=== PATIENT | female | born 1965 | race Caucasian/White ===

== ENCOUNTER → 2017-10-22 | Outpatient (CLI) | payer MEDICARE, MEDICAID ==
[~2017-10-22] MED LIST: ACE325 PO; ACE500 PO; ALBU8.5H12 IH; BUPR-127 PO; CODE118S5 PO; CYC10 PO; DAR100 PO; DIA5 PO; ESTR1.2525 PO; FISH OIL1 CAP PO; GEMF600T89 PO; HYD2 PO; HYDR2TAB42 PO; IBU600 PO; IRO150 PO; LANS15TA13 PO; LEV500 PO; LOR5 PO; METH4TAB57 PO; MULT-1319 PO; MULT1CAP41 PO; OMEP-218 PO; OXYC20TA86 PO; PER PO; PRED20TA6 PO; PREG75CA61 PO; PRO25 PO; VANC1FRO2 IV
--- NOTE | 2017-10-22 17:36 | RADIOLOGY IMAGING REPORT ---
FACILITY: [facility] [place] PATIENT NAME: Ondina Matute : 1965 MR: [id number] V: [id number] EXAM DATE: ORDERING PHYSICIAN: MILLY AVILA TECHNOLOGIST: Location: [facility] Patient: Ondina Matute : 1965 Visit/Account:[id number] Date of Sevice: 10/22/2017 EXAMINATION: Nuclear Medicine Limited Bone Scan with SPECT 10/22/2017 8:00 AM History: Low back pain post lumbar fusion 2008. Patient reports fall about 3 weeks ago. Patient rep orts pain on the right above the waist. TECHNIQUE: 24.6 mCi technetium 99m MDP was injected intravenously. Delayed gamma camera images in va rious orientation were obtained of the thoracolumbar spine and pelvis in multiple projections. SPECT imaging was also done.. COMPARISON STUDIES: Lumbosacral spine films 09/18/2010 FINDINGS: Bone radiotracer activity: There is fairly symmetric bilateral localization along the posterior [place] ents at 2 levels along the thoracolumbar junction. Also fairly symmetric uptake appears to be along t he anterior aspect of the pedicles at L4. Fairly low-grade localization and S1 is of questionable sig nificance. Soft tissues: negative IMPRESSION: 1. Localization along the anterior aspect of the pedicles at L4. With a history of previous PLIF this may indicate some loosening along the screws. 2. Posterior localization along the thoracolumbar spine is of uncertain etiology but may be related t o facet degenerative change, particularly given history of previous vertebral compression fractures h ere. Report Dictated By: Kaiser Best MD at 10/22/2017 5:23 PM Report E-Signed By: Kaiser Best MD at 10/22/2017 5:33 PM WSN:[id number]
== END ==
LOC: NUC 00:58
PROVIDERS: ATTEND Orthopaedic Surgery
DX: M54.5 Low back pain (principal); Z98.1 Arthrodesis status
CPT/HCPCS: 36415; 78300; 85027; 85651; 86140; A9503

== ENCOUNTER → 2018-04-02 | Outpatient (CLI) | payer MEDICARE, MEDICAID ==
[~2018-04-02] MED LIST changes: +IOPAMIDOL 76% 75 ML INFUS BTL 75 ML ONE
--- NOTE | 2018-04-02 14:58 | RADIOLOGY IMAGING REPORT ---
FACILITY: [facility] PATIENT NAME: Ondina Matute : 1965 MR: [id number] V: [id number] EXAM DATE: ORDERING PHYSICIAN: STEPHANIE PHILLIPS TECHNOLOGIST: [place] [facility] [place] Ondina Matute : 1965 Visit/Account:[id number] Date of Sevice: 04/02/2018 EXAMINATION: CT neck without IV contrast CT neck with IV contrast HISTORY: Swelling, mass, lump in neck for 3 days. COMPARISON: None. TECHNIQUE: Spiral scan was obtained from the hard palate through the upper chest without and with n onionic iodinated intravenous contrast. Sagittal and coronal reformatted images are also submitted. CONTRAST: 75 mL of IV Isovue-370. One of the following dose optimization techniques was utilized in the performance of this exam: Autom ated exposure control; adjustment of the mA and/or kV according to the patient's size; or use of an i terative reconstruction technique. Specific details can be referenced in the facility's radiology C T exam operational policy. FINDINGS: Masses/lesions: The thyroid is heterogeneous with diffuse enlargement of the right lobe and a probab le 4.8 cm nodule replacing the right lobe. Mildly prominent lingular tonsillar tissue without focal abnormality. The tongue base is collapsed sl ightly posteriorly. Airway: Mild narrowing of the oropharyngeal airway by the tongue base. Vessels: Mild atherosclerotic calcifications of the left carotid bulb. Vascular structures are paten t. Musculoskeletal/body wall: Mild degenerative changes of the cervical spine. Lymph nodes: There are a few shotty appearing lymph nodes bilaterally. Visualized orbits/brain/paranasal sinuses: Negative. Upper chest: 4 mm noncalcified left upper lobe nodule (image 79 series 6). IMPRESSION: 1. Heterogeneous thyroid with diffuse enlargement of the right lobe is suspicious for a large nodule replacing the right lobe. Thyroid ultrasound is recommended for further evaluation. 2. Prominent lingular tonsillar tissue is likely due to mild inflammation or tonsillar hypertrophy. T he tongue base is collapsed slightly posteriorly and causes mild narrowing of the oropharyngeal airwa y. 3. 4 mm noncalcified left upper lobe nodule. Fleischner society follow-up guidelines for newly detected incidental nodules in persons 35 years of age or older. *These recommendations do not apply to lung cancer screening, patients with immunosuppression, or pat ients with known primary malignancy. INCOMPLETE CHEST If nodule size is less than 6 mm: No further investigation on the basis of the estimated low risk of malignancy. Rafi H, Richard DP, Torres RAM, et al. Guidelines for Management of Incidental Pulmonary Nodules Dete cted on CT Images: From the Fleischner Society 2017. Radiology. These findings were discussed with STEPHANIE PHILLIPS at 04/02/2018 2:41 PM. Report Dictated By: Idalia Blackmon MD at 04/02/2018 2:21 PM Report E-Signed By: Idalia Blackmon MD at 04/02/2018 2:54 PM WSN:[id number]
--- NOTE | 2018-04-02 16:34 | RADIOLOGY IMAGING REPORT ---
FACILITY: [facility] PATIENT NAME: Ondina Matute : 1965 MR: [id number] V: [id number] EXAM DATE: ORDERING PHYSICIAN: STEPHANIE PHILLIPS TECHNOLOGIST: Location: [facility] [place] Patient: Ondina Matute : 1965 Visit/Account:[id number] Date of Sevice: 04/02/2018 EXAMINATION: Ultrasound thyroid HISTORY: Swelling, mass or lump in neck for [address] thyroid on CT. COMPARISON: CT neck from 04/02/2018. FINDINGS: Thyroid size: Right lobe: 5.8 x 2.4 x 3.5 cm Left lobe: 4.6 x 1.7 x 1.6 cm Isthmus: 0.4 cm Thyroid heterogeneity: Homogeneous parenchyma. Thyroid vascularity: Normal. Thyroid nodules: Right lobe: * 3.5 x 3.0 x 2.3 cm isoechoic, well-defined solid and cystic nodule mid lobe, not hypervascular. * 1.8 x 1.7 x 1.5 cm isoechoic, well-defined, solid and cystic nodule inferior pole, not hypervascul ar. * 1.6 x 1.5 x 1.0 cm isoechoic, well-defined solid and partly cystic nodule inferior pole medially, not hypervascular. Left lobe: * 1 cm isoechoic, well-defined solid nodule in the inferior pole, not hypervascular. Isthmus: * None discrete. Additional findings: None. IMPRESSION: Multinodular thyroid goiter, worst in the right lobe, with a few very low suspicion nodules, FNA biop sy of the 3.5 cm right mid lobe nodule is recommended for further evaluation. These findings were discussed with STEPHANIE PHILLIPS at 04/02/2018 4:28 PM. REFERENCE: 2015 [place] [employer] Management Guidelines for Adult Patients with Thyroid Nodules and D ifferentiated Thyroid Cancer: The [place] [employer] Guidelines Task Force on Thyroid Nodul es and Differentiated Thyroid Cancer. SONOGRAPHIC PATTERNS: * Benign: Purely cystic nodules (no solid component); estimated risk of malignancy <1 percent; no bi opsy recommended. * Very Low Suspicion: Spongiform or partially cystic nodules without any of the sonographic features described in low, intermediate, or high suspicion patterns; estimated risk of malignancy <3 percent; consider FNA at > 2 cm (Observation without FNA is also a reasonable option). * Low Suspicion: Isoechoic or hyperechoic solid nodule, or partially cystic nodule with eccentric so lid areas, without microcalcification, irregular margin or ETE (extra-thyroidal extension), or taller than wide shape; estimated risk of malignancy 5-10 percent; recommend FNA at >1.5 cm. * Intermediate Suspicion: Hypoechoic solid nodule with smooth margins without microcalcifications, E TE (extra-thyroidal extension), or taller than wide shape; estimated risk of malignancy 10-20 percent ; recommend FNA at > 1 cm. * High Suspicion: Solid hypoechoic nodule or solid hypoechoic component of a partially cystic nodule with one or more of the following features: irregular margins (infiltrative, microlobulated), microc alcifications, taller than wide shape, rim calcifications with small extrusive soft tissue component, evidence of ETE (extra-thyroidal extension); estimated risk of malignancy >70-90 percent; recommend FNA at > 1 cm. NOTES: * Although a sonographically suspicious subcentimeter thyroid nodule without evidence of extrathyroi amada extension or sonographically suspicious lymph nodes may be observed with close sonographic follow -up rather than pursuing immediate FNA, patient age and preference may modify decision-making. * A > 50% interval increase in nodule volume and/or development of new suspicious sonographic featur es are felt to be a valid reasons for potential re-aspiration of a nodule previously shown to have be nign FNA cytology. Report Dictated By: Idalia Blackmon MD at 04/02/2018 4:22 PM Report E-Signed By: Idalia Blackmon MD at 04/02/2018 4:30 PM WSN:[id number]
== END ==
LOC: CT 12:49
PROVIDERS: ATTEND Nurse Practitioner Family
DX: E04.2 Nontoxic multinodular goiter (principal); J35.1 Hypertrophy of tonsils; R91.1 Solitary pulmonary nodule
CPT/HCPCS: 36415; 70492; 76536; Q9967; 82040; 82247; 82310; 82374; 82435; 82565; 82947; 84075; 84132; 84155; 84295; 84450; 84460; 84520

== ENCOUNTER 2018-04-07 08:11 | Outpatient (RCR) | payer MEDICARE, MEDICAID ==
[~2018-04-07 08:11] MED LIST changes: -IOPAMIDOL 76% 75 ML INFUS BTL 75 ML ONE
[2018-04-07 08:50] LABS: INR 0.98
[2018-04-08] MEDS ORDERED: BARIUM SULFATE 340 GM POWD ONE (09:43)
[2018-04-08] MEDS ORDERED: BARIUM SULFATE 176 GM BTL PO ONE (09:43)
--- NOTE | 2018-04-08 13:44 | RADIOLOGY IMAGING REPORT ---
FACILITY: [facility] [place] PATIENT NAME: Ondina Matute : 1965 MR: [id number] V: [id number] EXAM DATE: ORDERING PHYSICIAN: STEPHANIE IZAGUIRRE TECHNOLOGIST: Location: [facility] Patient: Ondina Matute : 1965 Visit/Account:[id number] Date of Sevice: 04/08/2018 Exam type: ESOPHAGRAM History: Dysphasia Comparison: None. Findings: Double contrast esophagram was performed with thick and thin barium and air contrast. There is mild deviation of the cervical esophagus towards the left likely related to the multiple right-sided thyro id nodules recently diagnosed. There is a small hiatal hernia with a Schatzki ring producing mild na rrowing at the lower esophageal sphincter. There also appear to been mild mucosal irregularity at th e lower esophageal sphincter. A moderate amount of gastroesophageal reflux was observed. The fluoro scopy dose area product was 428.67 micro-Pimentel per meter squared IMPRESSION: 1. Mild leftward deviation of the cervical esophagus likely related to the numerous enlarged right-s ided thyroid nodules Small hiatal hernia with a Schatzki ring producing mild narrowing at the lower esophageal sphincter. There also appear to be mild mucosal irregularity at the lower esophageal sphincter which could be r elated to esophagitis although endoscopy may be helpful for further evaluation Moderate amount of gastroesophageal reflux was observed Report Dictated By: Jacquelyn Alba MD at 04/08/2018 1:37 PM Report E-Signed By: Jacquelyn Alba MD at 04/08/2018 1:40 PM WSN:[email or web address]
--- NOTE | 2018-04-08 16:05 | RADIOLOGY IMAGING REPORT ---
FACILITY: [facility] PATIENT NAME: Ondina Matute : 1965 MR: [id number] V: [id number] EXAM DATE: ORDERING PHYSICIAN: STEPHANIE IZAGUIRRE TECHNOLOGIST: Location: [facility] [place] Patient: Ondina Matute : 1965 Visit/Account:[id number] Date of Sevice: 04/08/2018 Exam type: THYROID BIOPSY FINE NEEDLE ASP History: Enlarged right thyroid nodule Comparison: Thyroid ultrasound April 02, 2018. Findings: Informed consent was obtained. The right-sided the patient's neck was prepped and draped usual steri le fashion. Local anesthesia was accomplished with 1% lidocaine. Utilizing sonographic guidance fou r 25-gauge FNA biopsies were obtained through the large dominant right thyroid nodule. The samples w ere given to the geospatial technologist for processing. The procedure was accomplished without appar ent complication. IMPRESSION: 1. Successful sonographically guided right-sided thyroid biopsy Report Dictated By: Jacquelyn Alba MD at 04/08/2018 4:00 PM Report E-Signed By: Jacquelyn Alba MD at 04/08/2018 4:01 PM WSN:[email or web address]
== END 2018-04-08 18:00 | disposition home or self-care (01) ==
LOC: US 08:11
PROVIDERS: ATTEND Surgery
DX: Z01.812 Encounter for preprocedural laboratory examination (principal); K21.9 Gastro-esophageal reflux disease without esophagitis; K44.9 Diaphragmatic hernia without obstruction or gangrene; E04.1 Nontoxic single thyroid nodule
CPT/HCPCS: 10022; 36415; 74220; 76942; 85610; 88104; 88172

== ENCOUNTER 2018-05-28 02:15 | Observation (INO) | payer MEDICARE, MEDICAID ==
[2018-05-28] VITALS (11 sets, daily range): BP systolic 125–156; BP diastolic 63–93
[~2018-05-28] VITALS: Ht 170.2 cm; Wt 122.5 kg
[~2018-05-28 02:15] MED LIST changes: +BUPR-124 PO; +HYDR-2966 PO; +LISI20TA29 PO; +OMEP-137 PO; +RANI-366 PO
[2018-05-28] MEDS ORDERED: LIDOCAINE/SOD BICARB 8.4% SYR ID ONE (09:40)
[2018-05-28] MEDS ORDERED: ceFAZolin(*) 2GM/D5W 50ML 50 ML IVPB ONE (09:40)
[2018-05-28] MEDS ORDERED: NORMOSOL R SOLN(*) 1000 ML BAG 1,000 ML IV PRN (09:40)
[2018-05-28] MEDS ORDERED: MIDAZOLAM 2 MG/2 ML VIAL IVP PRN (09:40)
[2018-05-28] MEDS ORDERED: NS 0.9% 20 ML SDV 20 ML ONE (13:11)
[2018-05-28] MEDS ORDERED: REMIFENTANIL HCL 1 MG VIAL ONE (13:15)
--- NOTE | 2018-05-28 13:37 | EKG ---
[place] [facility] [place] NAME[place] BARBARA SHAHID : [id number] MR: [id number] V: [id number] EXAM DATE: ORDERING PHYSICIAN: BLAIRE SHAW TECHNOLOGIST: Test Reason : Pre-op Blood Pressure : / mmHG Vent. Rate : 081 BPM Atrial Rate : 081 BPM P-R Int : 164 ms QRS Dur : 102 ms QT Int : 396 ms P-R-T Axes : 046 039 038 degrees QTc Int : 460 ms Normal sinus rhythm Normal ECG No previous ECGs available Confirmed by MAYLIN VELA ([id number]) on 05/28/2018 4:22:22 PM Referred By: Confirmed By:MAYLIN VELA
[2018-05-28] MEDS ORDERED: fentaNYL CITR 250 MCG/5 ML AMP ONE (14:31)
[2018-05-28] MEDS ORDERED: PROPOFOL EMUL(*) 10MG/ML 20 ML 40 ML ONE (14:32)
[2018-05-28] MEDS ORDERED: DEXAMETHASONE SOD PHOS 10MG/ML ONE (14:32)
[2018-05-28] MEDS ORDERED: ONDANSETRON 4 MG/2 ML VIAL ONE (14:32)
[2018-05-28] MEDS ORDERED: LIDOCAINE MPF 1% 5 ML VIAL ONE (14:32)
[2018-05-28] MEDS ORDERED: ROPIVACAINE 0.5% 20 ML VIAL ONE (14:33)
[2018-05-28] MEDS ORDERED: GELATIN SPONGE 12-7MM ONE (14:33)
[2018-05-28] MEDS ORDERED: KETAMINE HCL 200 MG/20 ML MDV ONE (14:34)
[2018-05-28] MEDS ORDERED: SUCCINYLCHOL CHL 100MG/5ML SYR IVP ONE (16:20)
[2018-05-28] MEDS ORDERED: fentaNYL CITR 100 MCG/2 ML AMP ONE ×2 (18:40→18:59)
[2018-05-28] MEDS ORDERED: NS(*) 0.9% 1000 ML BAG 1,000 ML IV PRN (19:00)
[2018-05-28] MEDS ORDERED: FLUSH 10 ML SYR IVP PRN (19:00)
[2018-05-28] MEDS ORDERED: ONDANSETRON 4 MG/2 ML VIAL IVP PRN (19:00)
[2018-05-28] MEDS ORDERED: PROMETHAZINE 25 MG/ML 1 ML AMP ONE (19:07)
[2018-05-28] MEDS ORDERED: HYDROmorphone HCL 2 MG/ML SDV ONE (19:14)
--- NOTE | 2018-05-28 19:15 | Post Operative Progress Note ---
Post Operative Progress Note Date: May 28, 2018 Time: 19:06 Surgeon: Ranjana Dictation number: [id number] Anesthesia: GETA by Dr. Mcnulty Pre-Op Diagnosis: Multinodular goiter Dysphagia Post-Op Diagnosis: LAURENCE Findings: Large thyroid lobe with multiple nodules Procedure(s): Right thyroid lobectomy Specimen Removed:(May be N/A): Right thyroid lobe Right paratracheal nodule Complications: None Fluids: See anesthesia record Estimated Blood Loss: Minimal Date OP Note Dictated: May 28, 2018 Time OP Note Dictated: 19:08 STEPHANIE IZAGUIRRE MD May 28, 2018 19:14
[2018-05-28] MEDS ORDERED: MIDAZOLAM 2 MG/2 ML VIAL ONE (19:33)
[2018-05-28] MEDS: HYDROmorphone HCL 2 MG TAB PO PRN (20:42)
[2018-05-28] MEDS: FAMOTIDINE 20 MG TAB PO SCH (21:30)
[2018-05-28] MEDS: DOCUSATE SODIUM 100 MG CAP PO SCH (21:30)
[2018-05-28] MEDS: MORPHINE 2 MG/ML SYR IVP PRN ×2 (21:32→23:37)
--- NOTE | 2018-05-28 22:17 | OPERATIVE REPORT 1 ---
EVENT DATE: May 28, 2018 SURGEON: Rudy Chilel MD ANESTHESIOLOGIST: Gennaro Mcnulty MD ANESTHESIA: General endotracheal anesthesia. PREOPERATIVE DIAGNOSIS Multinodular goiter with compressive symptoms including dysphagia. POSTOPERATIVE DIAGNOSIS Multinodular goiter with compressive symptoms including dysphagia. PROCEDURE PERFORMED Right thyroid lobectomy. COMPLICATIONS None. CONDITION Stable. BLOOD LOSS Minimal. INDICATIONS This is a 52-year-old female who presented to my office complaining of issues with breathing and swallowing. She had had an ultrasound which revealed an over 3 cm, almost 4 cm nodule in the right thyroid lobe amongst other nodules. The left thyroid only had a centimeter nodule that did not look suspicious. Biopsies indicated that the nodules were not cancerous. She was requesting to have her thyroid removed due to her compressive symptoms. I suggested just having her right thyroid lobe removed since this appears to be what is causing the compression and which has the largest nodules, and the left thyroid lobe looks relatively normal other than the 1 cm nodule. She agreed to a right thyroid lobectomy. DESCRIPTION OF PROCEDURE Patient was brought to the operating room, placed supine on the operating table. General endotracheal anesthesia was administered, and she was placed in a reclining beach chair position with her arms tucked at her sides and her neck extended. Her neck was then prepped and draped while the nerve monitor was then set up, and her neck was prepped and draped in a sterile fashion. Timeout was completed, and I marked the midline landmarks. I then marked the skin in the suprasternal area where I was to make the incision, a 6 mm transverse Stephanie incision. I injected the skin with 0.5% ropivacaine plain, then made the Stephanie incision, and dissected through the dermis and subcutaneous fat. I dissected through the platysma muscle and then created subplatysmal flaps down to the sternal notch and up to the thyroid cartilage. I then identified the median raphe between the strap muscles and made a vertical incision between the strap muscles and then started my dissection in the thyroid space to the right of midline. I dissected mostly bluntly with my finger to open up the areolar connective tissue anterior and lateral to the right thyroid lobe all the way around. I was able to easily clear the inferior pole vessels with the Harmonic scalpel and dissected mostly bluntly up around the superior pole until I isolated the vessels and then used the Harmonic scalpel to divide these vessels. I continued to medialize the right thyroid lobe by coming through the lateral attachments and ultimately identifying the middle thyroidal vein which was divided with the Harmonic scalpel in a hemostatic fashion. The inferior parathyroid gland was identified and preserved in situ. The superior parathyroid gland was on top of a nodule that was just posterior to the right thyroid lobe. It felt very firm and suspicious for an enlarged lymph node, and so this was removed with the thyroid. The nerve monitor was used throughout the case to identify the recurrent laryngeal nerve, and this was preserved through the surgery. Before I completely had the right thyroid lobe divided or freed up, I divided the isthmus on the anterior surface of the trachea and then joined the dissection through the ligament of Basilio and then passed the thyroid off as well as the paratracheal nodule. I walked them over to Radiology for frozen section. I reviewed them with the pathologist, and he did not see any evidence of cancer in the thyroid, and the paratracheal nodule looked like ectopic thyroid gland, but without any evidence of cancer. I went back to the operating room and irrigated and dried the wound and made sure everything was hemostatic. Then I placed a 10-[place] round drain into the right paratracheal space and came out in the suprasternal skin below the Stephanie incision, and I sewed it to the skin with a 2-0 silk suture. Once verifying the neck was hemostatic, I closed the median raphe with interrupted 3-0 Vicryl sutures and then closed the platysma muscle with 3-0 Vicryl interrupted sutures. The skin was closed with 4-0 Monocryl running subcuticular sutures. The skin was cleaned and dried, and Steri-Strips were applied, followed by a drain dressing around the drain which was taped into place. The patient was awakened, extubated in the operating room, and transported to the recovery room in stable condition having tolerated the procedure without any apparent problems. CHRIS
[2018-05-29] MEDS: HYDROmorphone HCL 2 MG TAB PO PRN ×3 (02:26→14:33)
[2018-05-29 02:55] VITALS: BP 124/76
[2018-05-29] MEDS: MORPHINE 2 MG/ML SYR IVP PRN ×3 (03:05→11:22)
[2018-05-29 07:44] VITALS: BP 109/56
[2018-05-29] MEDS ORDERED: DOCU-202 PO (08:04)
[2018-05-29] MEDS ORDERED: ONDA4TAB9 PO (08:04)
[2018-05-29] MEDS ORDERED: HYDR2TAB4 PO (08:04)
[2018-05-29] MEDS ORDERED: ONDANSETRON 4 MG ODT TABDP SL PRN (08:05)
--- NOTE | 2018-05-29 08:18 | Short(Outpt) Discharge Summary ---
Discharge Summary Reason for Hosp/Final Diag: (1) Multinodular goiter Status: Chronic Hospital Course & Plan: Right thyroid lobectomy completed without problems. Her main complaint overnight is right hand numbness in her thumb, index, middle, and ring fingers. Numbness is on palmar and dorsal surfaces so somewhat in median nerve distribution but also some radial nerve distribution. No motor deficits. No skin redness or breakdown. It was thought overnight to be related to her IV so this was removed. It was a dorsal hand IV. Possible pressure on t he nerve, likely in the carpal tunnel, although her deficit is sensory only, no motor deficit, and radial nerve (sensory) is involved as well based on distribution of anesthesia. I recommended we monitor this for return of function. Regarding her neck, dressings removed, drain removed, small dressing applied to drain hole. Incision looks good, not much swelling in her neck. She has been having nausea but no emesis. Will try zofran ODT. Will plan on d/c later today if she improves but, if not, I will recheck her this afternoon. (2) Dysphagia Status: Chronic (3) Chronic cough Status: Chronic Departure Discharge to: Home, Self Care Discharge Instructions Home Meds Active Scripts Ondansetron (ONDANSETRON ODT) 4 Mg Tab.rapdis, 1 TAB PO TID PRN for NAUSEA/VOMITING, #10 TAB.MIGNON 0 Refills Prov:STEPHANIE IZAGUIRRE MD 05/29/18 Hydromorphone Hcl (HYDROMORPHONE HCL) 2 Mg Tablet, 1 TAB PO Q4H PRN for PAIN, #30 TAB 0 Refills Prov:STEPHANIE IZAGUIRRE MD 05/29/18 Docusate Sodium (DOCUSATE SODIUM) 100 Mg Capsule, 1 CAP PO BID, #30 CAPSULE 0 Refills Prov:STEPHANIE IZAGUIRRE MD 05/29/18 Reported Medications Omeprazole (OMEPRAZOLE) 20 Mg Tablet.dr, 20 MG PO QDAY, TAB 04/24/18 Ranitidine Hcl (ZANTAC) 150 Mg Tablet, 150 MG PO DAILY, TAB 04/24/18 Lisinopril (LISINOPRIL) 20 Mg Tablet, 20 MG PO QDAY, TAB 04/24/18 Bupropion Hcl (BUPROPION XL) 150 Mg Tab.er.24h, 300 MG PO QDAY, TAB 04/24/18 Gemfibrozil (LOPID) 600 Mg Tablet, 600 MG PO BID 09/19/13 Estrogens, Conjugated (PREMARIN) 1.25 Mg Tablet, 1.25 MG PO QDAY 09/19/13 Follow up Referrals: General Surgery - 06/15/18 @ Surgery, General with STEPHANIE IZAGUIRRE MD You have a follow up appointment scheduled with Dr. Izaguirre on 06/15/18, at 3:45pm. Diet: Regular Activity: No Heavy Lifting, No Exertion Special Instructions: You may remove the dressing over your drain site on 05/30/18, then you can shower. After showering, leave the incision and drain site open to air but leave the steristrips in place until they fall off on their own. Do not immerse the incision or drain site for 2 weeks. Massage you hand and we'll monitor it over the next couple of weeks. Let me know when I see you back in my office how your hand is recovering. Problem Qualifiers (1) Dysphagia: Dysphagia type: pharyngoesophageal phase Qualified Codes: R13.14 - Dysphagia, pharyngoesophageal phase STEPHANIE IZAGUIRRE MD May 29, 2018 08:18
[2018-05-29] MEDS ORDERED: PANTOPRAZOLE SOD 40 MG TABEC PO SCH (09:00)
[2018-05-29] MEDS ORDERED: buPROPion XL 150 MG TABCR PO SCH (09:00)
[2018-05-29] MEDS ORDERED: LISINOPRIL 20 MG TAB PO SCH (09:00)
[2018-05-29] MEDS: DOCUSATE SODIUM 100 MG CAP PO SCH (09:12)
[2018-05-29] MEDS: FAMOTIDINE 20 MG TAB PO SCH (09:12)
[2018-05-29 11:41] VITALS: BP 116/62
== END 2018-05-29 08:01 | disposition home or self-care (01) ==
LOC: OR 02:15 → INTOOBSV 20:20 → MED 20:20
PROVIDERS: ADMIT Surgery; ATTEND Surgery
DX: E04.2 Nontoxic multinodular goiter (principal); R13.10 Dysphagia, unspecified; R05 Cough; I10 Essential (primary) hypertension; E78.5 Hyperlipidemia, unspecified; K21.9 Gastro-esophageal reflux disease without esophagitis; F41.8 Other specified anxiety disorders
CPT/HCPCS: 36415; 60210; 84443; 88305; 88307; 88331; 88332; 93005; A9270; G0378; J0330; J1100; J1170; J2001; J2250; J2270; J2405; J2550; J2704; J2795; J3010; J3490; J7050; Q0162; 82310; 82374; 82435; 82565; 82947; 84132; 84295; 84520; J0690; S0119

== ENCOUNTER 2018-06-29 00:45 | Day surgery (SDC) | payer MEDICARE, MEDICAID ==
[~2018-06-29] VITALS: Ht 170.2 cm; Wt 122.5 kg
[2018-06-29] VITALS (7 sets, daily range): BP systolic 114–140; BP diastolic 46–81
[~2018-06-29 00:45] MED LIST changes: +DOCU-202 PO; +HYDR2TAB4 PO; +ONDA4TAB9 PO
[2018-06-29] MEDS ORDERED: PROPOFOL EMUL(*) 10MG/ML 20 ML 60 ML ONE (07:51)
[2018-06-29] MEDS ORDERED: LIDOCAINE MPF 1% 5 ML VIAL ONE (07:51)
[2018-06-29] MEDS ORDERED: GLYCOPYRROLATE 0.2MG/ML 1 ML INJ IVP ONE (07:55)
[2018-06-29] MEDS ORDERED: LIDOCAINE/SOD BICARB 8.4% SYR ID ONE (08:00)
[2018-06-29] MEDS ORDERED: NORMOSOL R SOLN(*) 1000 ML BAG 1,000 ML IV PRN (08:00)
[2018-06-29] MEDS ORDERED: KETAMINE HCL-NS 50 MG/5 ML SYR ONE (08:23)
--- NOTE | 2018-06-29 09:42 | Short(Outpt) Discharge Summary ---
Discharge Summary Reason for Hosp/Final Diag: (1) Dysphagia Status: Chronic Hospital Course & Plan: EGD with biopsies and esophageal dilation and colonoscopy with polypectomy x3 completed without problems. (2) Postprandial bloating Status: Chronic (3) Regurgitation of food Status: Chronic (4) Colon cancer screening Status: Chronic (5) Family history of colon cancer Departure Discharge to: Home, Self Care Discharge Instructions Home Meds Active Scripts Ondansetron 4 Mg Odt (ONDANSETRON 4 MG ODT) 4 Mg Tab.rapdis, 1 TAB PO TID PRN for NAUSEA/VOMITING, #10 TAB.MIGNON 0 Refills Prov:STEPHANIE IZAGUIRRE MD 05/29/18 Docusate Sodium (DOCUSATE SODIUM) 100 Mg Capsule, 1 CAP PO BID, #30 CAPSULE 0 Refills Prov:STEPHANIE IZAGUIRRE MD 05/29/18 Reported Medications Omeprazole (OMEPRAZOLE) 20 Mg Tablet.dr, 20 MG PO QDAY, TAB 04/24/18 Ranitidine Hcl (ZANTAC) 150 Mg Tablet, 150 MG PO DAILY, TAB 04/24/18 Lisinopril (LISINOPRIL) 20 Mg Tablet, 20 MG PO QDAY, TAB 04/24/18 Bupropion Hcl (BUPROPION XL) 150 Mg Tab.er.24h, 300 MG PO QDAY, TAB 04/24/18 Gemfibrozil (LOPID) 600 Mg Tablet, 600 MG PO BID 09/19/13 Estrogens, Conjugated (PREMARIN) 1.25 Mg Tablet, 1.25 MG PO QDAY 09/19/13 Diet: Regular Activity: As Tolerated Special Instructions: Your upper endoscopy and colonoscopy were completed without problems. I biopsed your stomach and duodenum to look for causes of your symptoms and I dilated your esophagus so we'll see how your symptoms are as you recover from these procedures. I removed 3 medium size polyps from your colon and they were sent to pathology. Your colon prep wasn't very good but I was able to make it all the way around to the end of your colon and I didn't find any cancers or other abnormalities other than the 3 polyps. I recommend that we complete another colonoscopy in 1 year given the poor prep since another polyp could be hiding under stool given the 3 polyps that I found and your family history of colon cancer. If the repeat colonoscopy is normal then you should undergo colonoscopies every 5 years. My office will call you in the next couple of days to schedule a follow up appointment to see me back in my office to discuss these results and see how you're feeling. Problem Qualifiers (1) Dysphagia: Dysphagia type: pharyngeal phase Qualified Codes: R13.13 - Dysphagia, pharyngeal phase STEPHANIE IZAGUIRRE MD Jun 29, 2018 09:42
--- NOTE | 2018-06-29 11:45 | NUR ---
0929 PT ARRIVED TO [place] VIA CART LEFT LAT POSITION, SBAR FROM [place] KEITA RN AND DR. SHAW, VSS. PT IMMEDIATELY STATED SHE NEEDS TO GET UP AND USED RESTROOM, ALTERNATIVES OFFERED REPEATEDLY, PT INSISTENT ON GETTING UP. 1040 PT UP TO BEDSIDE COMMODE, VERY SMALL AMOUNT OF URINE PRODUCED, DOEMARY KAY GUTIERREZ AT BEDSIDE 0945 DR. IZAGUIRRE AT BEDSIDE, VSS, PT IN SF POSITION DOWN TO 2L NC 0951 DOWN TO 1L NC C/O 10/10 THROAT PAIN, SPEAKING, SWALLOWING, AND TOLERATING HOT LIQUIDS (DESPITE ADVISE AGAINST). DECLINES ANALGESICS 1015 PT C/O BP CUFF, SWAPPED OUT FOR ADULT LONG, PT PLEASED 1026 SITTING AND STANDING ORTHOSTATICS STARTED, STABLE, PT DRESSED WITH ASSISTANCE OF NIECE 1030 D/C INSTRUCTIONS COVERED 1037 IV REMOVED, TENDER, PRESSURE DRESSING APPLIED 1040 WALKED TO CAR OUTSIDE OF ADMITTING ALONG WITH NIECEMATT, SAMANTHA (MATT'S ) WAS ALREADY IN VEHICLE. ALL BELONGINGS WITH PT, DECLINED WC, SELF-TRANSFERRED TO CAR WITHOUT INCIDENT.
== END 2018-06-29 10:40 | disposition home or self-care (01) ==
LOC: OR 00:45
PROVIDERS: ATTEND Surgery
DX: Z12.11 Encounter for screening for malignant neoplasm of colon (principal); D12.4 Benign neoplasm of descending colon; D12.5 Benign neoplasm of sigmoid colon; R13.12 Dysphagia, oropharyngeal phase
CPT/HCPCS: 00813; 43239; 43248; 45385; 87077; 88305; J2001; J2704; J3490

== ENCOUNTER → 2018-07-21 | Outpatient (CLI) | payer MEDICARE, MEDICAID ==
[2018-07-21 11:04] LABS: PLATELET COUNT, AUTOMATED 331 K/uL (150-450)
== END ==
LOC: LAB 10:30
PROVIDERS: ATTEND Surgery
DX: R05 Cough (principal); R53.83 Other fatigue
CPT/HCPCS: 36415; 82310; 82374; 82435; 82565; 82947; 84132; 84295; 84439; 84443; 84481; 84520; 85025

== ENCOUNTER → 2018-08-24 | Outpatient (CLI) | payer MEDICARE, MEDICAID ==
[~2018-08-24] MED LIST changes: +BARIUM SULFATE 148 GM POWDER ONE; +GOLYTE PO
--- NOTE | 2018-08-24 17:34 | SLP MODIFIED BARIUM SWALLOW ---
Speech Language Pathology Modified Barium Swallow Evaluation Report Date of Evaluation: 08-24-18 Patient Name: Ondina Matute Patient :1965, 53yrs Physician: Rudy Chilel MD Clinician: Adir Mao M.S., [facility]-[employer] BACKGROUND The patient is a 53 yr old female referred for an MBS to assess swallow structure and function as indicated by s/s of pharyngeal dysphagia including globus sensation with emesis following food and liquids. Symptoms initiated following R-side thyroid lumpectomy in 2018. Symptoms persisted a even after a recent esophageal dilation. She takes medication for acid reflux and reports symptoms are well controlled. Oxygen Supplementation: No Level of Consciousness: Non altered Cognitive/Linguistic: intact Orientation: x4 Language: -expressive: nonaphasic -receptive: nonaphasic Speech: -non-apraxic -non-dysarthric Voice -Dysphonia: none -Nasal emission: No -Hypernasality: No -Wet Vocal Quality: No Non-verbal Oral Structure and Function: within functional limits for speech and swallow Pain with Swallow: Denies. Pt. reported feeling globus sensation at the approximately level of the larynx. She reported globus sensation once the food and liquid trials begun. She demonstrated some mild signs of anxiety. She reports tilting her head back and breathing deeply/slowly will sometimes help with symptoms and she did this during the MBS. MODIFIED BARIUM SWALLOW In conjunction with radiology, lateral view with trials of the following consistencies: thin barium liquid (noncarbonated), barium marked pureed, mechanical soft, and regular food consistencies, and a 1cm barium pill. ORAL STAGE Thin Liquids: no evidence of dysphagia . WNL Pureed Foods: no evidence of dysphagia . WNL Mechanical Soft Foods: no evidence of dysphagia . WNL Regular Foods: no evidence of dysphagia . WNL. PHARYNGEAL STAGE Thin Liquid: no evidence of dysphagia WNL. Pureed Food: no evidence of dysphagia WNL. Mechanical Soft Foods: no evidence of dysphagia WNL. Regular Food Consistency: no evidence of dysphagia WNL. Penetration/Aspiration Scale*: Thin liquid: Score of 1= Contrast does not enter airway [place] thick liquids: Score of 1= Contrast does not enter airway Honey thick liquids: Score of 1= Contrast does not enter airway Puree: Score of 1= Contrast does not enter airway Soft and regular solids: Score of 1= Contrast does not enter airway *(Rosenbek et al. 1996) ESOPHAGEAL STAGE Peristaltic movement appears to be WNL Cervical Esophagus: Materials witnessed clearing from cervical esophagus WNL. Thoracic Esophagus: Materials witnessed clearing from upper and lower esophagus. Mild stasis with reflux in the mid thoracic esophagus. YELITZA: Minimal YELITZA with materials reversing direction but remaining in middle 1/3 of esophagus with thin liquids. Laryngopharyngeal Reflux (LPR) None witnessed. No material refluxed to proximal esophagus or was regurgitated passed UES into pharynx. BARIUM PILL: 1cm barium pill taken with thin liquids. No oral, pharyngeal, or esophageal dysphagia witnessed. SUMMARY Aspiration Risk: Low. No oral or pharyngeal stage dysphagia witnessed. No laryngeal penetration or aspiration witnessed. Pt. did report symptoms including globus sensation and acute nausea. She did not vomit during or immediately following the MBS. 1.Dysphagia Severity Rating Scale (Gramigna, 2006; Martha et. al., 1990): 0 Normal swallow mechanism 2.No modification in consistency of diet is indicated. 3. The patient did demonstrate anxiety connected with swallowing as well as an independently developed compensatory strategy that involved tilting her head back and breathing deeply/slowly which she reports will sometimes help with symptoms. RECOMMENDATIONS 1. Speech Therapy may be appropriate if Dr. Manrique (ENT) evaluation is negative. Speech therapy is available to treat the patient for psychogenic dysphagia if her primary physician feels this is appropriate. Thank you for this referral. Please call [phone] to contact the [employer]. Adri Mao M.S., [facility] Physician Signature Date MTDD
--- NOTE | 2018-08-24 17:52 | RADIOLOGY IMAGING REPORT ---
FACILITY: [facility] [place] PATIENT NAME: Ondina Matute : 1965 MR: [id number] V: [id number] EXAM DATE: ORDERING PHYSICIAN: STEPHANIE IZAGUIRRE TECHNOLOGIST: [place] [facility] [place] Ondina Matute : 1965 Visit/Account:[id number] Date of Sevice: 08/24/2018 Exam type: ESOPH VIDEO SWALLOWING History: Thyroid surgery, difficulty swallowing Comparison: None. Findings: Modified barium swallow was performed by the speech pathologist. The patient received various liquid s and barium impregnated solids and a barium tablet. No dysphasia was identified during the study. Please see the speech pathologist report for complete details. The fluoroscopy dose area product was 520.27 micro-Pimentel per meter squared IMPRESSION: 1. As above Report Dictated By: Jacquelyn Alba MD at 08/24/2018 5:47 PM Report E-Signed By: Jacquelyn Alba MD at 08/24/2018 5:48 PM WSN:[email or web address]
== END ==
LOC: RAD 00:50
PROVIDERS: ATTEND Surgery
DX: F45.8 Other somatoform disorders (principal)
CPT/HCPCS: 74230

== ENCOUNTER 2018-09-30 01:33 | Day surgery (SDC) | payer MEDICARE, MEDICAID ==
[~2018-09-30] VITALS: Ht 170.2 cm; Wt 120.7 kg
[~2018-09-30 01:33] MED LIST changes: -BARIUM SULFATE 148 GM POWDER ONE; +LEVO88TA45 PO
[2018-09-30 06:10] VITALS: BP 143/81
[2018-09-30] MEDS ORDERED: LIDOCAINE/SOD BICARB 8.4% SYR ID ONE (06:30)
[2018-09-30] MEDS ORDERED: NORMOSOL R SOLN(*) 1000 ML BAG 1,000 ML IV PRN (06:30)
[2018-09-30] MEDS ORDERED: LIDOCAINE MPF 1% 5 ML VIAL ONE ×2 (07:00)
[2018-09-30] MEDS ORDERED: PROPOFOL EMUL(*) 10MG/ML 20 ML 40 ML ONE (07:00)
[2018-09-30 07:56] VITALS: BP 101/76
--- NOTE | 2018-09-30 08:04 | Short(Outpt) Discharge Summary ---
Discharge Summary Reason for Hosp/Final Diag: (1) Colon cancer screening Status: Chronic Hospital Course & Plan: Colonoscopy completed without problems. (2) Family history of colon cancer Departure Discharge to: Home, Self Care Discharge Instructions Home Meds Active Scripts Peg/Electrolytes (GOLYTELY SOLUTION) 4,000 Ml Soln, 1 GAL PO ONCE, #1 GAL 0 Refills Prov:STEPHANIE IZAGUIRRE MD 08/07/18 Ondansetron 4 Mg Odt (ONDANSETRON 4 MG ODT) 4 Mg Tab.rapdis, 1 TAB PO TID PRN for NAUSEA/VOMITING, #10 TAB.MIGNON 0 Refills Prov:STEPHANIE IZAGUIRRE MD 07/13/18 Reported Medications Levothyroxine Sodium (LEVOTHYROXINE SODIUM) 88 Mcg Tablet, 88 MCG PO QDAY 09/28/18 Omeprazole (OMEPRAZOLE) 20 Mg Tablet.dr, 20 MG PO QDAY, TAB 04/24/18 Ranitidine Hcl (ZANTAC) 150 Mg Tablet, 150 MG PO DAILY, TAB 04/24/18 Lisinopril (LISINOPRIL) 20 Mg Tablet, 20 MG PO QDAY, TAB 04/24/18 Bupropion Hcl (BUPROPION XL) 150 Mg Tab.er.24h, 300 MG PO QDAY, TAB 04/24/18 Gemfibrozil (LOPID) 600 Mg Tablet, 600 MG PO BID 09/19/13 Estrogens, Conjugated (PREMARIN) 1.25 Mg Tablet, 1.25 MG PO QDAY 09/19/13 Diet: Regular Activity: As Tolerated Special Instructions: Your colonoscopy was completed without any problems and your prep was much better this time. I didn't find any polyps or other problems. Because of your family history, I recommend that you undergo another colonoscopy in 5 years. My office will call you in the next couple of days to schedule a follow up appointment after you've seen ENT and to schedule another chest CT. STEPHANIE IZAGUIRRE MD Sep 30, 2018 08:04
--- NOTE | 2018-09-30 08:09 | NUR ---
0805: report from toi jewell rn 0809: pt given ice chips, tolerated well. Pt states that she has to poop and is having gas pain. pt offered bed andre but denies, pt is encouraged to pass gas, and is offered emotional support and a position change to relieve pain
[2018-09-30 08:24] VITALS: BP 119/56
[2018-09-30 08:27] VITALS: BP 108/79
--- NOTE | 2018-09-30 09:19 | NUR ---
0815: pt denies lightheadedness, pt is taken to restroom 0820: pt is getting dressed. 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
== END 2018-09-30 08:50 | disposition home or self-care (01) ==
LOC: OR 01:33
PROVIDERS: ATTEND Surgery
DX: Z12.11 Encounter for screening for malignant neoplasm of colon (principal)
CPT/HCPCS: 00812; G0121; J2001; J2704

== ENCOUNTER → 2018-10-15 | Outpatient (CLI) | payer MEDICARE, MEDICAID ==
[~2018-10-15] MED LIST changes: +IOPAMIDOL 76% 150 ML INFUS BTL 150 ML ONE
--- NOTE | 2018-10-15 11:39 | RADIOLOGY IMAGING REPORT ---
FACILITY: [facility] [place] PATIENT NAME: Ondina Matute : 1965 MR: [id number] V: [id number] EXAM DATE: ORDERING PHYSICIAN: STEPHANIE IZAGUIRRE TECHNOLOGIST: Location: [facility] - [place], [place] Patient: Ondina Matute : 1965 Visit/Account:[id number] Date of Sevice: 10/15/2018 CT CHEST W & W/O CON History: Pulmonary nodule ADDITIONAL CLINICAL HISTORY: None TECHNIQUE: Contiguous axial images were performed through the chest to the level of the adrenal gla nds with and without IV contrast. Coronal and sagittal reformatting was also performed.Dose Lowerin g Technique One of the following dose optimization techniques was utilized in the performance of this exam: Autom ated exposure control; adjustment of the mA and/or kV according to the patient's size; or use of an i terative reconstruction technique. Specific details can be referenced in the facility's radiology C T exam operational policy. Contrast: 75 mL Isovue-370 COMPARISON STUDIES: CT of the neck April 02, 2018. Lungs / Pleura: The previously noted 4 mm nodule in the posterior left upper lobe appears unchanged and is abutting the major fissure. Best appreciated on image 86 of series 4. There is a 2 mm calcified nodule posterior aspect left upper lobe best seen on image 88 There is a 3 mm subpleural nodule posterior sulcus the left lower lobe with adjacent fibrotic strandi ng best appreciated on image 284. There is an 8 mm noncalcified nodule anterolateral aspect right lower lobe is appreciated on image 21 0. There is a 5 mm nodule medial inferior aspect of the right upper lobe abutting the minor fissure best seen on image 178 Mediastinum/nodes: negative. Heart and vessels: negative. Musculoskeletal / Body wall: There is mild loss of height of the superior endplate of L1. Mild com pression fracture of T9 and T7. This gentle S-shaped scoliosis of the thoracic spine There appears to have been resection of the right lobe the thyroid gland. Upper abdomen: negative. IMPRESSION: Previous seen noted 4 mm nodule posterior aspect left upper lobe appears unchanged. There are additi onal nodules identified in the lungs measuring up to 8 mm in diameter FLEISCHNER SOCIETY FOLLOW-UP GUIDELINES FOR NEWLY DETECTED INCIDENTAL NODULES IN PERSONS 35 YEARS OF AGE OR OLDER. *These recommendations do NOT apply to lung cancer screening, patients with immunosuppression or leola ents with a known primary malignancy. MULTIPLE SOLID NODULES If nodule size is < 6 mm: * Low risk patient ? No routine follow-up. * High risk patient ? Optional CT at 12 months. If nodule size is 6-8 mm: * Low risk patient ? CT at 3-6 months, then consider CT at 18-24 months if no change. * High risk patient ? CT at 3-6 months, then CT at 18-24 months if no change. If nodule size is > 8 mm: * Low risk patient ? CT at 3-6 months, then consider CT at 18-24 months if no change. * High risk patient ? CT at 3-6 months, then consider CT at 18-24 months if no change. LOW RISK PATIENT: Minimal or absent history of tobacco use and of other known risk factors. HIGH RISK PATIENT: Tobacco use, family history of lung cancer, upper pulmonary lobe location of nodul e, presence of emphysema, pulmonary fibrosis, older age. Rafi H, Richard DP, Torres JM, et al. Guidelines for Management of Incidental Pulmonary Nodules Dete cted on CT Images: From the Fleischner Society 2017. Radiology. uchnipn A mild compression fractures at T7, T9 and L1 Report Dictated By: Jacquelyn Alba MD at 10/15/2018 11:21 AM Report E-Signed By: Jacquelyn Alba MD at 10/15/2018 11:35 AM WSN:[email or web address]
== END ==
LOC: CT 01:31
PROVIDERS: ATTEND Surgery
DX: R91.1 Solitary pulmonary nodule (principal)
CPT/HCPCS: 36415; 71270; 82565; Q9967

== ENCOUNTER → 2018-10-20 | Outpatient (CLI) | payer MEDICARE, MEDICAID ==
[~2018-10-20] MED LIST changes: -IOPAMIDOL 76% 150 ML INFUS BTL 150 ML ONE
== END ==
LOC: LAB 11:12
PROVIDERS: ATTEND Surgery
DX: E04.2 Nontoxic multinodular goiter (principal); E03.9 Hypothyroidism, unspecified
CPT/HCPCS: 36415; 84443

== ENCOUNTER → 2018-11-04 | Outpatient (CLI) | payer MEDICARE, MEDICAID ==
--- NOTE | 2018-11-04 14:19 | RADIOLOGY IMAGING REPORT ---
FACILITY: [facility] PATIENT NAME: Ondina Matute : 1965 MR: [id number] V: [id number] EXAM DATE: ORDERING PHYSICIAN: STEPHANIE IZAGUIRRE TECHNOLOGIST: Location: [place] [facility] Patient: Ondina Matute : 1965 Visit/Account:[id number] Date of Sevice: 11/04/2018 THYROID Indication: Patient status post right lobectomy of the thyroid gland. Evaluation of left lobe reques sedrick. Comparison study: Over 2017. Procedure: There has been satisfactory grayscale ultrasonic evaluation of the thyroid gland. Findings: Right lobe: The right lobe is surgically absent. Left lobe: The left lobe measures 4.5 cm x 1.4 cm x 2.6 cm in its sagittal, transverse and AP dimensi ons. There are 2 nodules in the left lobe. They are similar in size when compared to the prior exam . Nodule #1 in the anterior aspect of the midportion measures 11 x 9 mm in size. Nodule #2 project s inferiorly off the lower pole. It is isoechoic and it measures 10 x 10 mm in size. Note that the lateral aspect of the left lobe of the thyroid gland has a lobulated contour and this i s stable as well. IMPRESSION: 1. Status post right thyroid lobectomy. 2. Stable appearance of 2 nodules in the left lobe of the thyroid gland. Report Dictated By: Will Ibrahim MD at 11/04/2018 12:12 PM Report E-Signed By: Will Ibrahim MD at 11/04/2018 2:14 PM WSN:[email or web address]
== END ==
LOC: US 00:58
PROVIDERS: ATTEND Surgery
DX: E04.2 Nontoxic multinodular goiter (principal); E03.9 Hypothyroidism, unspecified
CPT/HCPCS: 76536

== ENCOUNTER → 2018-11-25 | Outpatient (CLI) | payer MEDICARE, MEDICAID ==
[~2018-11-25] MED LIST changes: +IOPAMIDOL 76% 100 ML INFUS BTL 100 ML ONE; +LEVO-3 PO; +OMEP40CA48 PO
--- NOTE | 2018-11-25 13:24 | RADIOLOGY IMAGING REPORT ---
FACILITY: [facility] - [place] PATIENT NAME: Ondina Matute : 1965 MR: [id number] V: [id number] EXAM DATE: ORDERING PHYSICIAN: STEPHANIE IZAGUIRRE TECHNOLOGIST: Location: [facility] Patient: Ondina Matute : 1965 Visit/Account:[id number] Date of Sevice: 11/25/2018 CT ABDOMEN PELVIS W/ CON HISTORY: upper abdominal wall painful mass TECHNIQUE: Following administration of IV contrast contiguous axial images acquired through the abdom en/pelvis. Coronal and sagittal reformatting also performed.Dose Lowering Technique One of the following dose optimization techniques was utilized in the performance of this exam: Autom ated exposure control; adjustment of the mA and/or kV according to the patient's size; or use of an i terative reconstruction technique. Specific details can be referenced in the facility's radiology C T exam operational policy. CONTRAST: 75 mL Isovue-370 COMPARISON: CT chest October 15, 2018 FINDINGS: Visualized lung bases: Previously noted 3 mm subpleural nodule posterior sulcus left lower lobe jaden ins relatively unchanged and is best seen on image 92 of series 3 previously noted 8 mm noncalcified nodule anterolateral right lower lobe appears unchanged and is best seen on image 210 Hepatobiliary: Negative. Spleen: Negative. Adrenals: Negative. Pancreas: There several small hypoattenuating lesions seen within the head and body/tail the pancrea s appears similar to the prior CT which may represent fatty clefts although if further evaluation is desired MR may be helpful Kidneys ureters or bladder: Subcentimeter hypodensity in the right kidney may represent a cyst althou gh is too small to characterize Genitalia: Negative. GI: Negative. Vessels/spaces/nodes: Negative. Bones/soft tissues: There is a tiny umbilical hernia containing fat. There is mild diastases of the rectus sheath in the upper abdomen and a small area of fatty replacement in the left abdominis rectu s muscle. Otherwise a mass in the anterior abdominal wall is not appreciated. There are postsurgical changes of the lumbar spine at L4-5 and S1 from posterior lumbar interbody fus ion . There are mild compression textures of the super endplates of T9-10 and L1 that were present previously Additional findings: None pertinent. IMPRESSION: Pulmonary nodules in the lung bases appears stable when compared the prior study There are several small hypoattenuating lesions within the head and body/tail the pancreas appear denia e are to the prior study. These may represent fatty clefts although if further evaluation is desired MR may be helpful Tiny umbilical hernia containing fat. There is mild diastases of the rectus sheath in the upper abdomen. A small area of fatty replacement of the left abdominis rectus muscle is present. Otherwise the mass in the anterior abdominal sharif not appreciated Additional chronic findings as described Report Dictated By: Jacquelyn Alba MD at 11/25/2018 12:02 PM Report E-Signed By: Jacquelyn Alba MD at 11/25/2018 1:21 PM WSN:[email or web address]
== END ==
LOC: CT 11-19 14:54
PROVIDERS: ATTEND Surgery
DX: R91.1 Solitary pulmonary nodule (principal); K46.9 Unspecified abdominal hernia without obstruction or gangrene
CPT/HCPCS: 36415; 74177; 82565; Q9967

== ENCOUNTER → 2018-12-21 | Outpatient (CLI) | payer MEDICARE, MEDICAID ==
[~2018-12-21] MED LIST changes: -IOPAMIDOL 76% 100 ML INFUS BTL 100 ML ONE; -RANI-366 PO; +RANI-54 PO
--- NOTE | 2018-12-21 11:52 | EKG ---
FACILITY: [facility] - [place] PATIENT NAME: BARBARA SHAHID : [id number] MR: [id number] V: [id number] EXAM DATE: ORDERING PHYSICIAN: LOIDA SHEN TECHNOLOGIST: STONEY Ramirez Reason : PRE-OP Blood Pressure : / mmHG Vent. Rate : 075 BPM Atrial Rate : 075 BPM P-R Int : 170 ms QRS Dur : 094 ms QT Int : 404 ms P-R-T Axes : 063 064 064 degrees QTc Int : 451 ms Normal sinus rhythm Low voltage QRS Borderline ECG When compared with ECG of 28-MAY-2018 12:25, No significant change was found Confirmed by STEPHANIE SAMUEL ([id number]) on 12/22/2018 6:23:02 AM Referred By: LOIDA SHEN Confirmed By:STEPHANIE SAMUEL
== END ==
LOC: RESP 09:39
PROVIDERS: ATTEND Otolaryngology
DX: R94.31 Abnormal electrocardiogram [ECG] [EKG] (principal)
CPT/HCPCS: 93005

== ENCOUNTER 2018-12-28 03:49 | Day surgery (SDC) | payer MEDICARE, MEDICAID ==
[~2018-12-28] VITALS: Ht 170.2 cm; Wt 125.2 kg
[2018-12-28 07:34] VITALS: BP 147/85
[2018-12-28] MEDS ORDERED: fentaNYL CITR 100 MCG/2 ML AMP ONE ×3 (08:34→11:08)
[2018-12-28] MEDS ORDERED: ONDANSETRON 4 MG/2 ML VIAL ONE (08:35)
[2018-12-28] MEDS ORDERED: DEXAMETHASONE SOD PHOS 10MG/ML ONE (08:35)
[2018-12-28] MEDS ORDERED: LIDOCAINE MPF 1% 5 ML VIAL ONE (08:35)
[2018-12-28] MEDS ORDERED: PROPOFOL EMUL(*) 10MG/ML 20 ML 40 ML ONE (08:35)
[2018-12-28] MEDS ORDERED: KETAMINE HCL 200 MG/20 ML MDV ONE (08:37)
[2018-12-28] MEDS ORDERED: ceFAZolin(*) 2GM/D5W 50ML 50 ML IVPB ONE (08:45)
[2018-12-28] MEDS ORDERED: LIDOCAINE/SOD BICARB 8.4% SYR ID ONE (08:45)
[2018-12-28] MEDS ORDERED: MIDAZOLAM 2 MG/2 ML VIAL IVP PRN (08:45)
[2018-12-28] MEDS ORDERED: NORMOSOL R SOLN(*) 1000 ML BAG 1,000 ML IV PRN (08:45)
[2018-12-28] MEDS ORDERED: BACITRACIN OINT 15 GM TUBE TP ONE (09:37)
[2018-12-28] MEDS ORDERED: LIDO/EPI 1% MDV 1:100,000 20ML INFIL ONE (09:37)
[2018-12-28] MEDS ORDERED: NS(*) 0.9% 250 ML BAG 250 ML ONE (09:37)
[2018-12-28] MEDS ORDERED: OXYMETAZOLINE SPRAY 15 ML BTL ONE (09:37)
[2018-12-28] MEDS ORDERED: HYDR-653 PO (10:50)
[2018-12-28] MEDS ORDERED: CEFU500T10 PO (10:51)
--- NOTE | 2018-12-28 10:53 | OPERATIVE REPORT 1 ---
EVENT DATE: December 28, 2018 SURGEON: Esdras Short MD ANESTHESIOLOGIST: Gennaro Mcnulty MD ANESTHESIA: LMA PREOPERATIVE DIAGNOSIS 1. Nasal septal deviation. 2. Bilateral inferior turbinate hypertrophy. POSTOPERATIVE DIAGNOSIS 1. Nasal septal deviation. 2. Bilateral inferior turbinate hypertrophy. PROCEDURE PERFORMED 1. Septoplasty. 2. Submucosal resection of bilateral inferior turbinates. INDICATIONS Please refer to the preoperative note. DESCRIPTION OF PROCEDURE The patient was positively identified in the preoperative area. She was there alone. Risks again explained, including but are not limited to bleeding, infection, nasal septal perforation, and those associated with anesthesia. She acknowledged understanding of those risks. She was then brought back to the operative suite, placed supine on the operative table and anesthesia was administered. Once asleep, the patient was positioned, then prepped and draped in the usual sterile fashion. I initially decongested the nose by injecting approximately 10 cc of 1% lidocaine with epinephrine to the bilateral anterior nasal septal mucosa along the face of the bilateral inferior turbinates. Both nasal cavities were subsequently packed with cottonoids containing Afrin solution. The cottonoids were subsequently removed and nasal endoscopy was performed. This was notable for a left inferior septal spur and a rightward nasal septal deviation. A Arjun incision was then made in the left anterior nasal septal mucosa. The subperichondrial flap was elevated. I then incised the anterior nasal septal cartilage approximately 5 mm posterior to the original Arjun incision, and contralateral flap was elevated. The deviated portion of the basal nasal septal cartilage and bone was then removed. The Tab incision was then reapproximated with interrupted Chromic stitch. I then addressed the inferior turbinates. A stab incision was made at the base of the left inferior turbinate. The [place] elevator was utilized to elevate the mucosa off the underlying bone. A submucous resection was then performed with the turbinate blade of the microdebrider. The stab incision was then cauterized with suction Bovie electrocautery. The contralateral inferior turbinate was addressed in a similar fashion. Bilateral nasal septal splints were then placed and secured the columella with sutures. The patient was then turned to Anesthesia for emergence. ESTIMATED BLOOD LOSS 25 cc. COMPLICATIONS None. MTDD
[2018-12-28] MEDS ORDERED: PROMETHAZINE 25 MG/ML 1 ML AMP ONE (11:16)
[2018-12-28] MEDS ORDERED: APAP/HYDROCODONE 325/5 TAB ONE (11:36)
[2018-12-28 12:00] VITALS: BP 155/80
[2018-12-28 12:15] VITALS: BP 183/104
[2018-12-28 12:30] VITALS: BP 136/104
[2018-12-28 13:02] VITALS: BP 157/85
--- NOTE | 2018-12-28 13:22 | NUR ---
pt having 8/10 pain, complaining of pain in nose and headache, pt already had pain pill, pt reassured, pt sitting at edge of bed, was able to dress self and is eating cheese and crackers and diet coke. IV saline locked.
--- NOTE | 2018-12-28 13:45 | NUR ---
pt stated ready for discharge, pt oxygen spot checked, pt oxygen 90%, encouraged pt and educated pt to cough and deep breath while awake at home. patients pain 8/10 at nose site, pt stated headache getting better. pt encourage to elevate head at home, apply ice and to take pain medications as ordered. pt educated that no further pain medication given here due to safety after having IV narcotics in recovery room. pt agreed. pt discharge to [facility] with all discharge instructions.
[2019-01-01] MEDS ORDERED: DOCU-416 PO (16:22)
== END 2018-12-28 12:00 | disposition home or self-care (01) ==
LOC: OR 03:49
PROVIDERS: ATTEND Otolaryngology
DX: J34.2 Deviated nasal septum (principal); J34.3 Hypertrophy of nasal turbinates
CPT/HCPCS: 30140; 30520; A9270; J1100; J2001; J2250; J2405; J2550; J2704; J3010; J3490; J7050; J0690

== ENCOUNTER → 2019-01-08 | Outpatient (CLI) | payer MEDICARE, MEDICAID ==
[~2019-01-08] MED LIST changes: +CEFU500T10 PO; +DOCU-416 PO; +HYDR-653 PO
== END ==
LOC: LAB 11:47
PROVIDERS: ATTEND Surgery
DX: E03.9 Hypothyroidism, unspecified (principal); R23.2 Flushing; R63.5 Abnormal weight gain
CPT/HCPCS: 36415; 84443

== ENCOUNTER 2019-02-04 01:24 | Day surgery (SDC) | payer MEDICARE, MEDICAID ==
[~2019-02-04] VITALS: Ht 170.2 cm; Wt 125.2 kg
[2019-02-04] MEDS ORDERED: PROPOFOL EMUL(*) 10MG/ML 20 ML 20 ML ONE (08:51)
[2019-02-04] MEDS ORDERED: NORMOSOL R SOLN(*) 1000 ML BAG 1,000 ML IV PRN (09:40)
[2019-02-04] MEDS ORDERED: LIDOCAINE/SOD BICARB 8.4% SYR ID ONE (09:40)
[2019-02-04 10:00] VITALS: BP 138/61
[2019-02-04 11:28] VITALS: BP 125/72
--- NOTE | 2019-02-04 12:05 | NUR ---
patient expresses need to go to bathroom. upon moving, discover patient had soiled the bed with urine. patient is very confused and embarrassed.
--- NOTE | 2019-02-04 12:05 | NUR ---
Patient removed supplemental oxygen on own. states she doesn't want to wear it anymore. tolerating well. O2 sat at 92% on room air with no compensation from pulse or respiration rate. will continue to monitor.
[2019-02-04 12:10] VITALS: BP 145/92
--- NOTE | 2019-02-04 12:10 | NUR ---
Orthostatic vitals complete. sitting BP 135/87, pulse 83, O2 sat 92%. Standing 136/86, pulse 82, O2sat 91%. patient up to bathroom quickly. will continue to monitor and assess.
[2019-02-04 12:38] VITALS: BP 141/91
[2019-02-04 13:15] VITALS: BP 143/87
[2019-02-05] MEDS ORDERED: FLUT16SP19 (10:54)
== END 2019-02-04 13:15 | disposition home or self-care (01) ==
LOC: OR 01:24
PROVIDERS: ATTEND Internal Medicine Gastroenterology
DX: K20.9 Esophagitis, unspecified (principal); K29.70 Gastritis, unspecified, without bleeding
CPT/HCPCS: 43239; 88305; 88313; 88342; J2704